=== PATIENT | male | born 1995 | race African-American/Black ===

== ENCOUNTER 2018-09-26 07:13 | Emergency (ER) | payer SELFPAY ==
[~2018-09-26] VITALS: Ht 180.3 cm; Wt 74.8 kg
[2018-09-26 07:18] VITALS: BP 109/51
[2018-09-26] MEDS ORDERED: ACETAMINOPHEN 500 MG TAB PO ONE (07:45)
== END 2018-09-26 08:22 | disposition home or self-care (01) ==
LOC: ER 07:13
DX: G44.209 Tension-type headache, unspecified, not intractable (principal); F17.210 Nicotine dependence, cigarettes, uncomplicated; F12.10 Cannabis abuse, uncomplicated
CPT/HCPCS: 70450